=== PATIENT | female | born 1985 | race Caucasian/White ===

== ENCOUNTER 2016-10-13 13:05 | Emergency (ER) | END 2016-10-13 16:51 | disposition home or self-care (01) | DX: R05 Cough (principal); J45.901 Unspecified asthma with (acute) exacerbation | CPT/HCPCS: 71010; 94664; 96372; J1100; Z7502; Z7610 ==

== ENCOUNTER 2017-10-22 03:57 | Emergency (ER) | END 2017-10-22 10:39 | disposition home or self-care (01) ==

== ENCOUNTER 2018-05-26 10:03 | Emergency (ER) | END 2018-05-26 12:53 | disposition home or self-care (01) ==

== ENCOUNTER 2018-11-16 14:13 | Emergency (ER) | payer MEDICAID ==
[~2018-11-16] VITALS: Wt 83.2 kg
[~2018-11-16 14:13] MED LIST: ACET650T85; ALBU8.5H8 INH; AZIT250T PO; BENZ-6 PO; CETI10CA PO; D-ME473S2 PO; FLUT9.9S NASAL; GUAI-637 PO; IBUP-1542 PO; IBUP800T48 PO; MED4DP PO; METH750T93 PO; PRED20TA PO
[2018-11-16] MEDS ORDERED: KETOROLAC 30 MG INJ IV STA (16:30)
[2018-11-16] MEDS ORDERED: ONDANSETRON 4 MG INJ IV STA (16:30)
[2018-11-16] MEDS ORDERED: SOD CHLORIDE 0.9% 1,000 ML IV STA (16:30)
[2018-11-16] MEDS ORDERED: PROCHLORPERAZINE 10 MG INJ IV STA (16:30)
--- NOTE | 2018-11-16 16:36 | ERD ---
ER Documentation Chief Complaint Chief Complaint irwin, n/v/d HPI Patient is a 33-year-old female with history of migraine headaches presents to the ED with exacerbation of her usual headaches. Patient states this headache started about 1 week ago and has been constant since then. Patient states her headache is throbbing in quality, localized to her bilateral temporal area and radiates down towards occipital scalp. Patient states this headache is similar to her previous ongoing headaches but worse. She was unable to control her headaches with ibuprofen so she came here for further evaluation. She reports associated photophobia. No numbness, tingling, focal weakness, neck stiffness. No recent head trauma. Patient also reports nausea and vomiting since yesterday. She reports a total of 4 episodes of nonbilious non-bloody emesis yesterday and also "over 20 episodes" of loose watery diarrhea. She denies any recent travel or antibiotic use. She also reports a fever of 100.4 5 days ago which has since resolved. She is currently afebrile here in the ED. ROS All systems reviewed and are negative except as per history of present illness. Medications Home Meds Active Scripts Ibuprofen* (Motrin*) 600 Mg Tab, 600 MG PO Q6 for pain, #30 TAB Prov:DERICK ROSEN-C 11/16/18 Methocarbamol* (Robaxin*) 750 Mg Tablet, 750 MG PO TID for pain, #30 TAB Prov:FEDERICO BURNETT DO 05/26/18 Ibuprofen* (Motrin*) 800 Mg Tab, 800 MG PO Q8H PRN for PAIN, #30 TAB Prov:FEDERICO BURNETT DO 05/26/18 Albuterol Sulfate* (Proair HFA*) 8.5 Gm Hfa.aer.ad, 2 PUFF INH Q4, #1 INHALER Prov:AMOS,DARA C 10/22/17 Ibuprofen* (Motrin*) 600 Mg Tab, 600 MG PO Q6, #30 TAB Prov:AMOS,DARA C 10/22/17 Guaifenesin* (Robitussin*) 100 Mg/5 Ml Syrup, 200 MG PO Q4H PRN for COUGH for 3 Days, ML Prov:AMOS,DARA C 10/22/17 Methylprednisolone* (Medrol* DOSE PACK) 4 Mg/Dose-Pack Tab.ds.pk, 4 MG PO . DIRECTED for 6 Days, PACKET Prov:DARA TRINIDAD 10/22/17 Fluticasone Propionate (Flonase Allergy Relief) 9.9 Ml [place].susp, 1 SPRAY NASAL BID, #1 BOTTLE TO EACH NOSTRIL Prov:TRAVIS NAIK PA-C 10/13/16 Cetirizine Hcl* (Zyrtec*) 10 Mg Capsule, 10 MG PO DAILY, #30 TAB.CHEW Prov:TRAVIS NAIK PA-C 10/13/16 Dextromethorphan Hb-Promethazine Hcl* (Promethazine DM* Syrup) 473 Ml Syrup, 5 ML PO Q6 PRN for COUGH for 14 Days, ML Prov:TRAVIS NAIK PA-C 10/13/16 Benzonatate* (Tessalon Perle*) 100 Mg Capsule, 100 MG PO Q8H PRN for COUGH for 14 Days, CAP Prov:TRAVIS NAIK PA-C 10/13/16 Albuterol Sulfate* (Proair HFA*) 8.5 Gm Hfa.aer.ad, 2 PUFF INH Q4, #1 INHALER Prov:TRAVIS NAIK PA-C 10/13/16 Benzonatate* (Tessalon Perle*) 100 Mg Capsule, 100 MG PO Q8H PRN for COUGH, #15 CAP Prov:BUCK MICHAEL PA-C 08/27/16 Prednisone* (Prednisone*) 20 Mg Tab, 40 MG PO DAILY for 4 Days, TAB Prov:BUCK MICHAEL PA-C 08/27/16 Azithromycin* (Zithromax*) 250 Mg Tablet, 250 MG PO .ZPACK DIRECTED, #6 TAB TAKE 500 MG (2 TABS) THE FIRST DAY THEN 250 MG (1 TAB) DAYS 2-5 Prov:BUCK MICHAEL PA-C 08/27/16 Reported Medications Acetaminophen (Tylenol 8 Hour) 650 Mg Tablet.sa 09/23/12 Allergies Allergies: Coded Allergies: No Known Allergy (Unverified , 05/26/18) PMhx/Soc History of Surgery: No Anesthesia Reaction: No Hx Neurological Disorder: No Hx Respiratory Disorders: No Hx Cardiac Disorders: No Hx Psychiatric Problems: No Hx Miscellaneous Medical Probl: No Hx Alcohol Use: No Hx Substance Use: No Hx Tobacco Use: No Smoking Status: Never smoker Physical Exam Vitals Vital Signs Date Temp Pulse Resp B/P (MAP) Pulse Ox O2 O2 Flow FiO2 Time Delivery Rate 11/16/18 98.9 78 19 121/65 100 Room Air 18:02 (83) 11/16/18 99.2 93 20 125/80 99 14:28 (95) Physical Exam Const: + Appears in mild distress, bothered by the light. Head: Atraumatic Eyes: Normal Conjunctiva ENT: Normal External Ears, Nose and Mouth. Neck: Full range of motion. No meningismus. Resp: Clear to auscultation bilaterally Cardio: Regular rate and rhythm, no murmurs Abd: Soft, non tender, non distended. Normal bowel sounds Skin: No petechiae or rashes Back: No midline or flank tenderness Ext: No cyanosis, or edema Neuro: M/S: Alert and oriented Face: EOMI, face and pharynx with normal sensation and function Motor: Normal strength throughout Sensation: Normal sensation throughout Speech: Normal Cerebel: Normal coordination Normal gait Normal finger to nose DTR: 2+ and symmetric upper/lower extremities Psych: Normal Mood and Affect Result Diagram: 11/16/18 1643 11/16/18 1643 Results 24 hrs Laboratory Tests Test 11/16/18 16:43 11/16/18 16:50 White Blood Count 9.5 10^3/ul Red Blood Count 5.15 10^6/ul Hemoglobin 14.0 g/dl Hematocrit 42.6 % Mean Corpuscular Volume 82.7 fl Mean Corpuscular Hemoglobin 27.2 pg Mean Corpuscular Hemoglobin Concent 32.9 g/dl Red Cell Distribution Width 12.6 % Platelet Count 382 10^3/UL Mean Platelet Volume 9.8 fl Immature Granulocytes % 0.400 % Neutrophils % 62.7 % Lymphocytes % 25.6 % Monocytes % 5.9 % Eosinophils % 5.1 % Basophils % 0.3 % Nucleated Red Blood Cells % 0.0 /100WBC Immature Granulocytes # 0.040 10^3/ul Neutrophils # 6.0 10^3/ul Lymphocytes # 2.4 10^3/ul Monocytes # 0.6 10^3/ul Eosinophils # 0.5 10^3/ul Basophils # 0.0 10^3/ul Nucleated Red Blood Cells # 0.0 10^3/ul Sodium Level 140 mmol/L Potassium Level 4.3 mmol/L Chloride Level 104 mmol/L Carbon Dioxide Level 24 mmol/L Anion Gap 12 Blood Urea Nitrogen 14 mg/dl Creatinine 0.81 mg/dl Est Glomerular Filtrat Rate mL/min > 60 mL/min Glucose Level 99 mg/dl Calcium Level 9.6 mg/dl POC Beta HCG, Qualitative NEGATIVE Current Medications Medications Dose Sig/Zayra Start Time Status Last (Trade) Ordered Route PRN Stop Time Admin Dose Reason Admin Sodium 1,000 ml @ Q1H STAT 11/16/18 DC 11/16/18 Chloride 1,000 mls/hr IV 16:30 16:42 11/16/18 17:29 10 mg ONCE STAT 11/16/18 DC 11/16/18 Prochlorperaz IV 16:30 16:57 ine 11/16/18 16:32 (Compazine Inj) Ondansetron 4 mg ONCE STAT 11/16/18 DC 11/16/18 HCl (Zofran IV 16:30 16:42 Inj) 11/16/18 16:32 Ketorolac 30 mg ONCE STAT 11/16/18 DC 11/16/18 Tromethamine IV 16:30 16:55 (Toradol) 11/16/18 16:32 Procedures/MDM EMERGENT LABS AND DIAGNOSTIC STUDIES: Lab Results above were reviewed and interpreted by me as below. CBC: no e/o of systemic infection or severe anemia BMP: no e/o severe acidosis, alkalosis, renal failure, diabetic ketoacidosis Otherwise within normal limits, unremarkable or as documented above. Nursing Notes Reviewed. Previous Medical Records requested via the Electronic Health Record. EMERGENCY DEPARTMENT COURSE / MEDICAL DECISION MAKING: Pt is a 33 year old F with hx of migraine headaches who presents with exacerbation of her typical migraine headaches along with vomiting and diarrhea. Pt has no signs of focal neurological deficits on physical exam. Review of old records reveals that pt has a negative CT head 1 year ago. CBC and BMP obtained without any signs of infection, inflammation or dehydration. Headache improved status post IVF, Toradol, Compazine and Zofran. The patient's headache is unlikely related to serious etiology. She has no signs or symptoms to suggest subarachnoid hemorrhage, acute vertebral or carotid dissection, intracranial mass, epidural or subdural hematoma, giant cell arteritis, CVA, encephalitis or meningitis. Vomiting and diarrhea likely viral in etiology. She has no evidence of an acute surgical abdomen on physical exam. Patient is stable for outpatient follow up and management.She was discharged home with a prescription for Ibuprofen, told to increase fluids and follow up with PCP In 2 days. Strict ED return precautions given. Prior to discharge, patients vital signs have been reviewed SPECIALIST FOLLOW UP RECOMMENDED: None Patient has been advised to follow up with primary care in 1-2 days. Departure Diagnosis: Primary Impression: Migraine headache Migraine type: without aura Status migrainosus presence: without status migrainosus Intractability: not intractable Qualified Codes: G43.009 - Migraine without aura, not intractable, without status migrainosus Condition: Stable Patient Instructions: Preventing Migraine Headaches: Medications and Lifestyle Changes, What Are Migraine and Tension Headaches? Referrals: [facility] Additional Instructions: F/U with PCP in 2 days. Return to the ED for any new or worsening sx. DERICK ROSEN PA-C Nov 16, 2018 16:36
[2018-11-16] MEDS ORDERED: IBUP-1542 PO (17:56)
[2018-11-16 18:02] VITALS: BP 121/65; PULSE 78; RESP 19
== END 2018-11-16 18:03 | disposition home or self-care (01) ==
LOC: FTE 14:13
DX: G43.009 Migraine without aura, not intractable, without status migrainosus (principal)
CPT/HCPCS: 36415; 80048; 81025; 85025; 96361; 96374; 96375; J0780; J1885; J2405; J7030; Z7502

== ENCOUNTER 2019-05-10 21:07 | Emergency (ER) | payer MEDICAID ==
[~2019-05-10] VITALS: Ht 154.9 cm; Wt 73.3 kg
[~2019-05-10 21:07] MED LIST changes: +HC30CR25 TOP; +HYDR-842 PO
[2019-05-10 21:21] VITALS: BP 129/76; PULSE 96; RESP 16; Ht 154.9 cm; Wt 73.3 kg
== END 2019-05-11 00:30 | disposition home or self-care (01) ==
LOC: FTE 21:07
DX: S60.562A Insect bite (nonvenomous) of left hand, initial encounter (principal); S60.561A Insect bite (nonvenomous) of right hand, initial encounter; S80.862A Insect bite (nonvenomous), left lower leg, initial encounter; S80.861A Insect bite (nonvenomous), right lower leg, initial encounter; W57.XXXA Bitten or stung by nonvenomous insect and other nonvenomous arthropods, initial encounter; Y92.9 Unspecified place or not applicable
CPT/HCPCS: 99283